=== PATIENT | female | born 1940 | race Caucasian/White ===

== ENCOUNTER 2020-05-02 08:42 | Emergency (ER) | payer OTHER ==
[~2020-05-02] VITALS: Ht 160 cm; Wt 69.0 kg
--- NOTE | 2020-05-02 09:42 | NUR ---
Dr. garza at bedside.
[2020-05-02] MEDS ORDERED: ibuprofen tablet 400 MG TABLET PO ONE (09:50)
[2020-05-02 11:47] VITALS: BP 132/69
== END 2020-05-02 11:17 | disposition home or self-care (01) ==
LOC: ER 08:42
DX: S42.91XA Fracture of right shoulder girdle, part unspecified, initial encounter for closed fracture (principal); M25.511 Pain in right shoulder; M19.90 Unspecified osteoarthritis, unspecified site; G89.29 Other chronic pain; Z98.890 Other specified postprocedural states; X58.XXXA Exposure to other specified factors, initial encounter; Y93.89 Activity, other specified; Y92.89 Other specified places as the place of occurrence of the external cause; Y99.8 Other external cause status
CPT/HCPCS: 73020; 73130; 99284

== ENCOUNTER 2022-08-12 17:27 | Emergency (ER) | payer MEDICARE ==
[~2022-08-12] VITALS: Ht 162.6 cm; Wt 65.0 kg
[2022-08-12 17:48] VITALS: BP 166/84
[2022-08-12] MEDS ORDERED: CEPH250T PO (18:42)
== END 2022-08-12 18:53 | disposition home or self-care (01) ==
LOC: ER 17:29
DX: L02.212 Cutaneous abscess of back [any part, except buttock and flank] (principal); L72.3 Sebaceous cyst; M19.90 Unspecified osteoarthritis, unspecified site; G89.29 Other chronic pain; M54.50 Low back pain, unspecified
CPT/HCPCS: 10060; 99284